=== PATIENT | female | born 1985 | race Two or more races ===

== ENCOUNTER 2022-10-09 17:57 | Emergency (ER) | payer OTHER ==
[~2022-10-09] VITALS: Ht 165.1 cm; Wt 113.4 kg
== END 2022-10-09 22:31 | disposition home or self-care (01) ==
LOC: ER 17:57
DX: S89.82XA Other specified injuries of left lower leg, initial encounter (principal); X58.XXXA Exposure to other specified factors, initial encounter; Y93.89 Activity, other specified; Y92.89 Other specified places as the place of occurrence of the external cause; Y99.8 Other external cause status